=== PATIENT | female | born 1975 | race Hispanic/Latino ===

== ENCOUNTER 2018-07-20 15:24 | Emergency (ER) | payer OTHER ==
--- NOTE | 2018-07-20 15:38 | Emergency Department Report ---
Blank Doc - Documentation Documentation: 43 y/o female presents with a myriad of problems c/o of atraumatic left elbow pain with swelling and numbness, diffuse upper body rash, continued throat pain for 2 weeks. Plan elbow xray
[2018-07-20 16:05] VITALS: BP 143/74
--- NOTE | 2018-07-20 17:49 | XRay Report ---
FINAL REPORT EXAM: XR ELBOW 3+V LT HISTORY: left elbow pain TECHNIQUE: 3 views left elbow PRIORS: None. FINDINGS: No fracture identified. No dislocation seen. No evidence of joint effusion. Joint spaces are within normal limits. IMPRESSION: Negative elbow series
--- NOTE | 2018-07-20 19:59 | Emergency Department Report ---
Upper Extremity - HPI Chief Complaint: Extremity Injury, Upper Stated Complaint: BODY PAIN/SWELLING/SORE THROAT Time Seen by Provider: 07/20/18 15:30 Upper Extremity: Left Elbow Occurred When: 3 Days Symptoms: Yes Pain with Movement (with certain movements such as pronate and supinate), No Deformity, No Limited Range of Movement, No Numbness, No Weakness, No Swelling, No Bruising/Ecchymosis, No Laceration or Abrasion Other History: 43-year-old female presents to the emergency room for left elbow pain with mild swelling, redness, rash over body for 2 days and sore throat with nasal congestion for 3 weeks. Patient reports that the rash has been there for 2 days. No new medications no change of detergents no new lotions perfumes or foods. Patient does report there is strep throat running in her family. Patient reports he tried ibuprofen without much relief. Patient reports a past medical history hypercholesterolemia vitamin D deficiency. Patient reports she does not have a primary care provider but has been to [facility] in the past. ED Review of Systems ROS: Stated complaint: BODY PAIN/SWELLING/SORE THROAT Other details as noted in HPI Constitutional: denies: chills, fever ENT: throat pain, congestion Respiratory: denies: cough, shortness of breath, wheezing Musculoskeletal: joint swelling, arthralgia Skin: rash ED Past Medical Hx - Past Medical History Additional medical history: High cholesterol - Surgical History Hx Cholecystectomy: Yes Additional Surgical History: tubal ligation, thermal oblation - Social History Smoking Status: Current Every Day Smoker Substance Use Type: None - Medications Home Medications: Home Medications Medication Instructions Recorded Confirmed Last Taken Type Ibuprofen [Motrin 600 MG tab] 800 mg PO Q8H PRN #30 tablet 07/20/18 Unknown Rx predniSONE [Deltasone] 60 mg PO QDAY #9 tablet 07/20/18 Unknown Rx Upper Extremity Exam - Exam General: Vital signs noted. No distress. Alert and acting appropriately. Rash on chest and arms fine with a little urticaria. Head and Torso: Yes HEENT Abnormality (throat erythematous edematous with exudate), No Neck Tenderness, No Chest/Lungs Abnormality, No Abdominal Tenderness Shoulder Exam: Yes Normal Range of Motion in Shoulder, No Shoulder Tenderness, No Clavicle Tenderness, No Shoulder Deformity, No AC Joint Tenderness Arm Exam: No Arm/Humerus Tenderness, No Arm Deformity Elbow: Yes Normal Range of Motion in Elbow, No Elbow Tenderness, No Elbow Deformity Forearm: Yes Pain with Pronation, Yes Pain with Supination Wrist: Yes Normal ROM in Wrist, No Wrist Tenderness, No Wrist Deformity, No Snuffbox Tenderness, No Pain with Axial Thumb Compression Hand: Yes Normal ROM in Digit(s), No Hand Tenderness, No Hand Deformity, No Digit Tenderness, No Digit(s) Deformity, No Tendon Dysfunction CMS Exam: No Broken Skin, No Normal Distal Pulses, No Normal Capillary Refill, No Normal Distal Sensation ED Course Vital Signs 07/20/18 16:03 Temperature 97.7 F Pulse Rate 97 H Respiratory 18 Rate Blood Pressure 143/74 O2 Sat by Pulse 100 Oximetry ED Medical Decision Making - Radiology Data Radiology results: report reviewed Patient: PAYAM MERA MR#: [id number] : 1975 Acct:[id number] Age/Sex: 43 / F ADM Date: 07/20/18 Loc: ED Attending Dr: Ordering Physician: TRISTIN LEVY Date of Service: 07/20/18 Procedure(s): XR elbow 3+V LT Accession Number(s): [id number] cc: TRISTIN LEVY Fluoro Time In Minutes: FINAL REPORT EXAM: XR ELBOW 3+V LT HISTORY: left elbow pain TECHNIQUE: 3 views left elbow PRIORS: None. FINDINGS: No fracture identified. No dislocation seen. No evidence of joint effusion. Joint spaces are within normal limits. IMPRESSION: Negative elbow series Transcribed By: DAVID Dictated By: KEILY SANCHEZ MD Electronically Authenticated By: KEILY SANCHEZ MD Signed Date/Time: 07/20/181748 DD/ 48 TD/TT: 07/20/181748 - Medical Decision Making Patient is being evaluated by this provider in fast track. She'll be given tramadol for pain management Benadryl prednisone and penicillin G for strep throat. Patient advised to increase her water intake and to follow up with a primary care provider. Patient was discharged home on ibuprofen and prednisone for 3 days. Patient verbalized understanding Critical care attestation.: If time is entered above; I have spent that time in minutes in the direct care of this critically ill patient, excluding procedure time. ED Disposition Clinical Impression: Pharyngitis, Left elbow tendinitis, Rash in adult Disposition: DC-01 TO HOME OR SELFCARE Is pt being admited?: No Does the pt Need Aspirin: No Condition: Stable Instructions: Pharyngitis (ED), Tennis Elbow (ED), Acute Rash (ED) Additional Instructions: Please take steroids as prescribed daily pain medication as needed. Follow up with her primary care provider if his symptoms persist or gets worse. I have also listed an orthopedic provider for your convenience to have her elbow reevaluated if it continues to cause pain. Prescriptions: Ibuprofen [Motrin 600 MG tab] 800 mg PO Q8H PRN #30 tablet PRN Reason: Pain predniSONE [Deltasone] 60 mg PO QDAY #9 tablet Referrals: RAMESH WYNNE [Primary Care Provider] - 3-5 Days BILLY GONZALEZ MD [Staff Physician] - 3-5 Days Forms: Work/School Release Form(ED)
[2018-07-20] MEDS ORDERED: DELTASONE PO ONE (20:00)
[2018-07-20] MEDS ORDERED: BENADRYL PO ONE (20:00)
[2018-07-20] MEDS ORDERED: BICILLIN L-A IM ONE (20:00)
[2018-07-20] MEDS ORDERED: ULTRAM PO ONE (20:01)
== END 2018-07-20 20:37 | disposition home or self-care (01) ==
LOC: ED 15:24
DX: J02.9 Acute pharyngitis, unspecified (principal); M77.9 Enthesopathy, unspecified; E78.00 Pure hypercholesterolemia, unspecified; F17.200 Nicotine dependence, unspecified, uncomplicated; Z98.51 Tubal ligation status; Z90.49 Acquired absence of other specified parts of digestive tract
CPT/HCPCS: 73080; 96372; 99283; J0561; J7512

== ENCOUNTER 2019-03-29 08:41 | Emergency (ER) | payer OTHER ==
[2019-03-29 08:54] VITALS: BP 114/61
--- NOTE | 2019-03-29 09:57 | XRay Report ---
RIGHT KNEE 3 VIEWS INDICATION / CLINICAL INFORMATION: pain COMPARISON: None available. FINDINGS: BONES / JOINT(S): No acute fracture or subluxation. There is minimal marginal osteophyte formation al lian the medial compartment SOFT TISSUES: No significant abnormality. ADDITIONAL FINDINGS: None. Signer Name: Levi Telles MD Signed: 03/29/2019 9:52 AM Workstation Name: [email or web address]
--- NOTE | 2019-03-29 10:24 | Emergency Department Report ---
ED Extremity Problem HPI - General Chief complaint: Extremity Problem,Nontraumatic Stated complaint: RT KNEE PAIN Time Seen by Provider: 03/29/19 09:31 Source: patient Mode of arrival: Ambulatory Limitations: No Limitations - History of Present Illness Initial comments: Patient is a 44-year-old female who is presenting with right knee pain. Patient states that for the past 3 weeks pain has been worsening. Patient states she is on her feet all day with work. Patient states that there is associated swelling which is slightly better in the morning worse at night. Pain is a 6 out of 10 in severity and is worse when she bends her knee. Patient states she feels as though sometimes as a ripping sensation within the knee. - Related Data Previous Rx's Medication Instructions Recorded Last Taken Type Ibuprofen [Motrin 600 MG tab] 800 mg PO Q8H PRN #30 tablet 07/20/18 Unknown Rx predniSONE [Deltasone] 60 mg PO QDAY #9 tablet 07/20/18 Unknown Rx Ibuprofen [Motrin 800 MG tab] 800 mg PO Q8HR PRN #10 tablet 03/29/19 Unknown Rx Allergies Allergy/AdvReac Type Severity Reaction Status Date / Time No Known Allergies Allergy Unverified 07/20/18 15:26 ED Review of Systems ROS: Stated complaint: RT KNEE PAIN Other details as noted in HPI Comment: All other systems reviewed and negative ED Past Medical Hx - Past Medical History Previous Medical History?: Yes Additional medical history: Mitral valve prolapse. - Surgical History Past Surgical History?: Yes Hx Cholecystectomy: Yes Additional Surgical History: Tubal ligation - Social History Smoking Status: Former Smoker Substance Use Type: Alcohol - Medications Home Medications: Home Medications Medication Instructions Recorded Confirmed Last Taken Type Ibuprofen [Motrin 600 MG tab] 800 mg PO Q8H PRN #30 tablet 07/20/18 Unknown Rx predniSONE [Deltasone] 60 mg PO QDAY #9 tablet 07/20/18 Unknown Rx Ibuprofen [Motrin 800 MG tab] 800 mg PO Q8HR PRN #10 tablet 03/29/19 Unknown Rx ED Physical Exam - General Limitations: No Limitations General appearance: alert, in no apparent distress - Head Head exam: Present: atraumatic, normocephalic - Eye Eye exam: Present: normal appearance - ENT ENT exam: Present: mucous membranes moist - Neck Neck exam: Present: normal inspection - Respiratory Respiratory exam: Absent: respiratory distress - GI/Abdominal GI/Abdominal exam: Present: soft, normal bowel sounds. Absent: distended, tenderness, guarding, rebound - Extremities Exam Extremities exam: Present: normal inspection - Expanded Lower Extremity Exam Right Knee exam: Present: full ROM, tenderness, swelling (mild effusion), crepidus - Back Exam Back exam: Present: normal inspection - Neurological Exam Neurological exam: Present: alert, oriented X3 - Psychiatric Psychiatric exam: Present: normal affect, normal mood - Skin Skin exam: Present: warm, dry, intact, normal color. Absent: rash ED Course Vital Signs 03/29/19 08:51 Temperature 98.5 F Pulse Rate 62 Respiratory 18 Rate Blood Pressure 114/61 O2 Sat by Pulse 99 Oximetry ED Medical Decision Making - Radiology Data RIGHT KNEE 3 VIEWS INDICATION / CLINICAL INFORMATION: pain COMPARISON: None available. FINDINGS: BONES / JOINT(S): No acute fracture or subluxation. There is minimal marginal osteophyte formation along the medial compartment SOFT TISSUES: No significant abnormality. ADDITIONAL FINDINGS: None. Signer Name: Levi Telles MD Signed: 03/29/2019 9:52 AM Workstation Name: [email or web address] Transcribed By: Dictated By: Levi Telles MD Electronically Authenticated By: Levi Telles MD Signed Date/Time: 03/29/19 0952 - Medical Decision Making Is crepitus with range of motion and clinically has some arthritic changes. The joint space is slightly decreased. Patient referred to orthopedics and the patient was given rice therapy. Critical care attestation.: If time is entered above; I have spent that time in minutes in the direct care of this critically ill patient, excluding procedure time. ED Disposition Clinical Impression: Knee arthropathy Disposition: DC-01 TO HOME OR SELFCARE Is pt being admited?: No Does the pt Need Aspirin: No Condition: Stable Instructions: Knee Effusion (ED), Arthralgia (ED), RICE Therapy (ED) Referrals: BILLY GONZALEZ MD [Staff Physician] - 7-10 days Time of Disposition: 10:25
== END 2019-03-29 10:30 | disposition home or self-care (01) ==
LOC: ED 08:41
DX: M17.11 Unilateral primary osteoarthritis, right knee (principal); Z98.51 Tubal ligation status; Z90.49 Acquired absence of other specified parts of digestive tract; Z87.891 Personal history of nicotine dependence